=== PATIENT | male | born 1990 | race Caucasian/White ===

== ENCOUNTER 2023-04-30 09:54 | Emergency (ER) | payer SELFPAY ==
[2023-04-30] MEDS ORDERED: Oseltamivir 75 MG CAP ONE ×2 (10:47→10:48)
[2023-04-30] MEDS ORDERED: Ibuprofen 800 MG TAB ONE (10:47)
[2023-04-30] MEDS ORDERED: Ondansetron ODT 4 MG TAB ONE (10:47)
== END 2023-04-30 10:59 | disposition home or self-care (01) ==
LOC: NAV ERS 09:54
DX: J11.1 Influenza due to unidentified influenza virus with other respiratory manifestations (principal)
CPT/HCPCS: 99283; Q0162